=== PATIENT | male | born 1935 | race Caucasian/White ===

== ENCOUNTER → 2016-08-11 | Outpatient (CLI) | payer MEDICARE ==
[2016-03-08 15:00] VITALS: BP 136/50
[~2016-08-11] MED LIST: ALLO300T PO; AMIT25TA PO; ASPI-482 PO; ATOR40TA59 PO; AZIT250T6 PO; CLOP75TA PO; FINA5TAB4 PO; GABA600T2 PO; HYDR-2163 PO; IBRU140C PO; LEVO50TA5 PO; LEVO88TA4 PO; LOSA25TA4 PO; LOSA50TA2 PO; METF500T9 PO; METO50TA2 PO; RANI150C PO
== END | disposition home or self-care (01) ==
LOC: EKG 10:10
PROVIDERS: ATTEND Internal Medicine Cardiovascular Disease
DX: R42 Dizziness and giddiness (principal)
CPT/HCPCS: 93225

== ENCOUNTER → 2017-01-26 | Outpatient (CLI) | payer MEDICARE ==
[2016-03-08 15:00] VITALS: BP 136/50
[~2017-01-26] MED LIST changes: +REGADENOSON 0.4 MG/5 ML DISP.SYRIN. IV ONE
== END | disposition home or self-care (01) ==
LOC: NM 08:32
PROVIDERS: ATTEND Internal Medicine Cardiovascular Disease
DX: I25.10 Atherosclerotic heart disease of native coronary artery without angina pectoris (principal)
CPT/HCPCS: 78452; 93017; 96374; 96375; 96376; A9500; J2785

== ENCOUNTER 2017-11-25 06:35 | Observation (INO) | payer MEDICARE ==
[2017-11-25] MEDS ORDERED: LIDOCAINE 2%/EPI 1:100,000 20 ML VIAL. (07:18)
[2017-11-25] MEDS ORDERED: MIDAZOLAM HCL/PF 5 MG/5 ML VIAL. (07:23)
[2017-11-25] MEDS ORDERED: fentaNYL PF VIAL 100 MCG/2 ML VIAL (07:23)
[2017-11-25 07:28] LABS: HEMATOCRIT 42.3 % (39.0-53.0); HEMOGLOBIN 13.8 g/dL (13.0-17.5); MEAN CORPUSCULAR HEMOGLOBIN 30 pg (25-35); MEAN CORPUSCULAR HGB CONC 33 g/dL (31-37); MEAN CORPUSCULAR VOLUME 92 fL (79-100); PLATELET COUNT 90 x10^3/uL (140-400); WHITE BLOOD COUNT 7.3 x10^3/uL (4.0-11.0)
[2017-11-25 07:35] LABS: ANION GAP 7 (6-14); BLOOD UREA NITROGEN 24 mg/dL (8-26); CALCIUM 8.5 mg/dL (8.5-10.1); CARBON DIOXIDE 29 mmol/L (21-32); CHLORIDE 105 mmol/L (98-107); CREATININE 1.5 mg/dL (0.7-1.3); GFR 44.8; GLUCOSE 99 mg/dL (70-99); POTASSIUM 3.6 mmol/L (3.5-5.1); SODIUM 141 mmol/L (136-145)
[2017-11-25 07:53] LABS: PROTHROMBIN TIME PATIENT 13.1 SEC (11.7-14.0)
[2017-11-25] MEDS ORDERED: IOHEXOL 300 MG/ML 100ML VIAL. (08:37)
[2017-11-25] MEDS ORDERED: CONTRAST GIVEN. MC (08:45)
[2017-11-25] MEDS ORDERED: AMIODARONE 150 MG/3 ML VIAL (09:15)
[2017-11-25] MEDS ORDERED: AMIODARONE 150 MG in IV DEXTROSE 5% 100 ML IV (09:45)
[2017-11-25] MEDS: BACITRACIN 50,000 UNIT in IV NORMAL SALINE 250ML 250 ML IRR (09:58)
[2017-11-25] MEDS: AMIODARONE 150 MG in IV DEXTROSE 5% 100 ML IV (09:59)
[2017-11-25] MEDS: LIDOCAINE 2%/EPI 1:100,000 20 ML VIAL. IJ (10:00)
[2017-11-25] MEDS: fentaNYL PF VIAL 100 MCG/2 ML VIAL IV (10:00)
[2017-11-25] MEDS: IOHEXOL 300 MG/ML 100ML VIAL. IV (10:00)
[2017-11-25] MEDS: MIDAZOLAM HCL/PF 5 MG/5 ML VIAL. IV (10:01)
[2017-11-25] MEDS ORDERED: NO ANTICOAGULANT THERAPY. MC (10:15)
[2017-11-25] MEDS ORDERED: ceFAZolin SODIUM 1 GM in IV DEXTROSE 5% 50 ML IV (10:30)
[2017-11-25] MEDS: AMIODARONE 900 MG in IV DEXTROSE 5% 500 ML IV (10:45)
[2017-11-25 10:54] LABS: POC GLUCOSE 143 mg/dL (70-99)
[2017-11-25] MEDS ORDERED: AMIODARONE 900 MG in IV DEXTROSE 5% 500 ML IV (11:45)
[2017-11-25] MEDS: ceFAZolin SODIUM IV Push 1 GM VIAL. IVP (16:09)
[2017-11-25 17:46] LABS: POC GLUCOSE 124 mg/dL (70-99)
[2017-11-25 21:20] LABS: POC GLUCOSE 117 mg/dL (70-99)
[2017-11-26 08:42] LABS: POC GLUCOSE 102 mg/dL (70-99)
[2017-11-26] MEDS ORDERED: PNEUMOCOCCAL VAX SCREEN BY RX. MC (09:00)
[2017-11-26] MEDS: AMIODARONE HCL 200 MG TABLET. PO (09:32)
== END 2017-11-26 16:30 | disposition home or self-care (01) ==
LOC: CCL 06:35 → 2 NORTH 08:36
DX: I49.5 Sick sinus syndrome (principal); I48.91 Unspecified atrial fibrillation; E78.5 Hyperlipidemia, unspecified; E11.9 Type 2 diabetes mellitus without complications; I10 Essential (primary) hypertension; E03.9 Hypothyroidism, unspecified; R00.1 Bradycardia, unspecified
CPT/HCPCS: 33217; 36415; 71045; 71046; 80048; 82962; 85027; 85610; 93005; 96365; 96366; 96367; 96375; 99152; 99153; G0378; G0379; J0282; J0690; J2250; J3010; J3490; J7050; Q9967

== ENCOUNTER → 2018-07-20 | Outpatient (CLI) | payer MEDICARE ==
[2017-11-26 11:53] VITALS: BP 157/75
[~2018-07-20] MED LIST changes: +AMIO200T4 PO; +LOSA-73 PO; -LOSA25TA4 PO; +LOSA25TA54 PO; -LOSA50TA2 PO; -METO50TA2 PO; +METO50TA6 PO; -REGADENOSON 0.4 MG/5 ML DISP.SYRIN. IV ONE
--- NOTE | 2018-07-20 16:22 | RAD ---
EXAM: Left upper extremity venous Doppler sonogram. HISTORY: Pain and swelling. TECHNIQUE: Leon scale and color Doppler sonographic evaluation of the left upper extremity veins with spectral waveform analysis was performed. FINDINGS: There is normal color flow, normal compressibility and there are normal spectral waveforms in the left upper extremity veins. IMPRESSION: No Doppler evidence of upper extremity deep venous thrombosis. Electronically signed by: Nuha Pate MD (07/20/2018 4:18 PM) [place] [id number]
== END | disposition home or self-care (01) ==
LOC: US 14:25
PROVIDERS: ATTEND Internal Medicine Hematology & Oncology
DX: C91.90 Lymphoid leukemia, unspecified not having achieved remission (principal); M79.89 Other specified soft tissue disorders
CPT/HCPCS: 93971